=== PATIENT | female | born 1995 | race Caucasian/White ===

== ENCOUNTER → 2016-05-03 | Outpatient (CLI) | payer BC, OTHER | END | disposition home or self-care (01) | LOC: C.RDSM 08:40 | PROVIDERS: ATTEND Family Medicine | DX: S93.401A Sprain of unspecified ligament of right ankle, initial encounter (principal); X58.XXXA Exposure to other specified factors, initial encounter ==

== ENCOUNTER → 2017-05-23 | Outpatient (CLI) | payer BC, OTHER ==
--- NOTE | 2017-05-23 09:33 | DIAGNOSTIC IMAGING REPORT ---
L ANKLE MIN 3 VIEWS CLINICAL HISTORY: Left ankle pain COMPARISON: None. DISCUSSION: No fractures or dislocations are visualized. IMPRESSION: No fractures or dislocations identified. No evidence of erosive disease. Electronically signed by: Tre Garcia M.D. 05/23/2017 9:32 AM Dictated Date/Time: 05/23/2017 9:31 AM
--- NOTE | 2017-05-23 09:34 | DIAGNOSTIC IMAGING REPORT ---
R ANKLE MIN 3 VIEWS CLINICAL HISTORY: Right ankle pain COMPARISON: May 03, 2016 DISCUSSION: No fractures or dislocations are visualized. There are no erosive changes. IMPRESSION: No fractures or dislocations identified. No evidence of erosive disease. Electronically signed by: Tre Garcia M.D. 05/23/2017 9:33 AM Dictated Date/Time: 05/23/2017 9:32 AM
== END | disposition home or self-care (01) ==
LOC: C.RDSM 09:27
PROVIDERS: ATTEND Family Medicine Sports Medicine
DX: M25.571 Pain in right ankle and joints of right foot (principal); M25.572 Pain in left ankle and joints of left foot